=== PATIENT | male | born 1930 | race Caucasian/White ===

== ENCOUNTER 2016-11-11 10:19 | Emergency (ER) | payer MEDICARE, OTHER ==
[2016-11-11 10:27] VITALS: BP 147/91
--- NOTE | 2016-11-11 11:02 | EDM.PDOC ---
ED HPI GENERAL MEDICAL PROBLEM - General Chief Complaint: General Stated Complaint: got dizzy Time Seen by Provider: 11/11/16 10:54 Source of Information: Reports: Patient History Limitations: Reports: No Limitations - History of Present Illness INITIAL COMMENTS - FREE TEXT/NARRATIVE: Gerry is an 85 yo male who is brought into the ER with concerns of a brief episode of dizziness. States he was at the [employer] getting a haircut. Admits upon getting out of the chair he became lightheaded and dizzy causing him to have to sit down. Friends at the [employer] shop felt he should be seen in the ER. He states he did not want to come into the ER. He denies any dizziness presently. States he had no other contributory symptoms, see ROS. has a tax appointment at 11:00 am and does not want any further testing. Onset: Today Duration: Resolved Prior to Arrival Location: Reports: Generalized Associated Symptoms: Denies: Confusion, Chest Pain, Cough, cough w sputum, Fever /Chills, Headaches, Malaise, Nausea/Vomiting, Seizure, Shortness of Breath, Syncope, Weakness - Related Data Allergies Allergy/AdvReac Type Severity Reaction Status Date / Time No Known Allergies Allergy Verified 11/11/16 10:29 Home Meds: Home Meds Aspirin [Halfprin] 81 mg PO BRK 11/11/16 [History] Tiotropium [Spiriva Handihaler] 1 inh INH DAILY 11/11/16 [History] Past Medical History HEENT History: Reports: Cataract, Impaired Vision Cardiovascular History: Reports: Heart Valve Replacement Respiratory History: Reports: Asthma Genitourinary History: Reports: BPH - Past Surgical History HEENT Surgical History: Reports: Cataract Surgery Cardiovascular Surgical History: Reports: None Respiratory Surgical History: Reports: None Male Surgical History: Reports: TURP-Transurethral Resection of Prostate Musculoskeletal Surgical History: Reports: Other (See Below) Other Musculoskeletal Surgeries/Procedures:: back surgery for pinched nerves Social & Family History - Tobacco Use Smoking Status *Q: Never Smoker Second Hand Smoke Exposure: No - Caffeine Use Caffeine Use: Reports: None - Recreational Drug Use Recreational Drug Use: No ED ROS GENERAL - Review of Systems Review Of Systems: See Below Constitutional: Denies: Fever, Chills, Weakness, Diaphoresis HEENT: Reports: No Symptoms Respiratory: Reports: No Symptoms Cardiovascular: Denies: Chest Pain, Dyspnea on Exertion, Lightheadedness, Syncope GI/Abdominal: Reports: No Symptoms : Reports: No Symptoms Neurological: Reports: Dizziness. Denies: Confusion, Headache, Difficulty Walking Psychiatric: Reports: No Symptoms ED EXAM, GENERAL - Physical Exam Exam: See Below Exam Limited By: No Limitations General Appearance: Alert, No Apparent Distress, Other (sitting up having normal conversation. ) Eye Exam: Bilateral Eye: EOMI, PERRL Ears: Normal External Exam, Hearing Grossly Normal, Normal TMs Nose: Normal Inspection, No Blood Throat/Mouth: Normal Inspection, Normal Lips, Normal Voice, No Airway Compromise Head: Atraumatic, Normocephalic Neck: Normal Inspection, Supple Respiratory/Chest: No Respiratory Distress, Lungs Clear, Normal Breath Sounds Cardiovascular: Regular Rate, Rhythm, No Murmur GI/Abdominal: Normal Bowel Sounds, Soft, No Organomegaly, No Distention, No Mass Extremities: Normal Inspection Neurological: Alert, Oriented, CN II-XII Intact, Normal Cognition, Normal Gait, No Motor/Sensory Deficits Psychiatric: Normal Affect, Normal Mood Skin Exam: Warm, Dry, Intact Course - Vital Signs Last Recorded V/S: Last Vital Signs Temp 97.6 F 11/11/16 10:24 Pulse 93 11/11/16 10:24 Resp 24 H 11/11/16 10:24 BP 147/91 H 11/11/16 10:24 Pulse Ox 95 11/11/16 10:24 Departure - Departure Time of Disposition: 11:11 Disposition: Home, Self-Care 01 Clinical Impression: Dizziness, nonspecific - Discharge Information Instructions: Vertigo, Near-Syncope, [id number], Dizziness, [id number] Forms: ED Department Discharge Additional Instructions: 1) Follow up with Dr. Hickey next week. 2) Discussed having laboratory work and imaging studies today, which Gerry declined today. - Problem List & Annotations (1) Dizziness, nonspecific SNOMED Code(s): 054902756, [id number] Code(s): R42 - DIZZINESS AND GIDDINESS Status: Resolved - Problem List Review Problem List Initiated/Reviewed/Updated: Yes - Assessment/Plan Plan: Discussed physical exam findings with Gerry. Advised further evaluation via laboratory work, EKG, etc... He declined any further testing. [place] it happened d /t not eating any breakfast this morning. States he feels well and would like to leave now.
== END 2016-11-11 11:11 | disposition home or self-care (01) ==
LOC: CC.ED 10:19
DX: R42 Dizziness and giddiness (principal); J45.909 Unspecified asthma, uncomplicated; Z79.82 Long term (current) use of aspirin
CPT/HCPCS: 99283; 99284